=== PATIENT | female | born 1965 | race Caucasian/White ===

== ENCOUNTER 2017-12-21 17:35 | Emergency (ER) | payer BC, OTHER ==
[~2017-12-21] VITALS: Ht 160 cm; Wt 80.7 kg
[~2017-12-21 17:35] MED LIST: AMITRIPTYLINE H10 MG PO; AMLODIPINE BESY10 MG PO; ATORVASTATIN CA20 MG PO; BUTALB-ACETAMI1 EACH PO; CALTRATE 600+D1 EACH PO; CELEBREX200 MG PO; ESTRADIOL0.5 MG PO; LEVOTHYROXINE112 MCG PO; LISINOPRIL5 MG PO; MAGNESIUM; MELATONIN3 MG PO; PANTOPRAZOLE SO40 MG PO; PROGESTERONE100 MG PO; SYNTHROID75 MCG PO; VYTORIN 10-401 EACH PO; ZYRTEC10 M3 PO
[2017-12-21] MEDS ORDERED: SODIUM CHLORIDE 0.9% 500ML 500 ML IV STA ×2 (18:20→20:11)
[2017-12-21] MEDS ORDERED: ONDANSETRON HCL INJ 2 MG/ML VIAL IV STA ×2 (18:20→21:25)
[2017-12-21] MEDS ORDERED: ASPIRIN 81 MG CHEW TAB PO ONE ×2 (18:30→22:00)
[2017-12-21 19:27] LABS: CLARITY,URINE CLOUDY (CLEAR); COLOR,URINE AMBER (YELLOW)
[2017-12-21 19:28] LABS: BILIRUBIN,URINE 2+ (NEGATIVE); KETONES,URINE 1+ (NEGATIVE); LEUKOCYTE ESTERASE ,URINE TRACE (NEGATIVE); NITRITE,URINE POSITIVE (NEGATIVE); PROTEIN,URINE DIPSTICK 2+ (NEGATIVE); URINE UROBILINOGEN 1 mg/dL (0.2 - 1)
--- NOTE | 2017-12-21 19:34 | Diagnostic Imaging Report ---
EXAMINATION: CHEST SINGLE (PORTABLE) INDICATION: Dehydration. COMPARISON: None FINDINGS: AP view TUBES and LINES: None. LUNGS: Lungs are well inflated. Focal rounded airspace opacity in the right lung base. Left basilar atelectasis and/or consolidation. PLEURA: No pleural effusion or pneumothorax. HEART AND MEDIASTINUM: The cardiomediastinal silhouette is unremarkable. BONES AND SOFT TISSUES: No acute osseous lesion. Soft tissues are unremarkable. UPPER ABDOMEN: No free air under the diaphragm. IMPRESSION: 1. Right lung base pneumonia. 2. Left basilar atelectasis and/or pneumonia. Signed by: Dr. Vahid Bradley M.D. on 12/21/2017 7:30 PM
[2017-12-21 19:53] LABS: EPITHELIAL CELLS,URINE MANY /LPF; RBC,URINE >50 /HPF (0-5); WBC,URINE (MAN) >50 /HPF (0-5)
[2017-12-21 19:55] LABS: BACTERIA,URINE MANY /HPF; COARSE GRANULAR CASTS,URINE >15 (0)
[2017-12-21] MEDS ORDERED: AZITHROMYCIN 500MG/NS 250 ML 250 ML IV STA (20:11)
[2017-12-21] MEDS ORDERED: CEFTRIAXONE SOD 1 GM VIAL IM ONE (20:15)
[2017-12-21] MEDS ORDERED: CEFTRIAXONE SOD 1 GM VIAL IV SCH (22:00)
[2017-12-21] MEDS ORDERED: SODIUM CHLORIDE FLUSH 10 ML SYR INJ PRN (22:00)
[2017-12-21] MEDS ORDERED: AZITHROMYCIN 500MG/SOD CHL 0.9% 250ML BAG IV SCH (22:00)
[2017-12-21] MEDS ORDERED: AZITHROMYCIN 500MG/NS 250 ML 250 ML IV SCH (22:30)
[2017-12-22] MEDS ORDERED: HYDROCODONE/APAP 5MG-325MG TAB PO ONE (00:45)
[2017-12-22 00:58] LABS: BASOPHILS % 0.3 % (0.0-1.0); HEMATOCRIT 45.5 % (34.2-44.1); HEMOGLOBIN 15.1 g/dL (12.0-16.0); LYMPHOCYTES # (AUTO) 1.1 (1.0-3.2); LYMPHOCYTES % 14.8 % (18.0-39.1); MEAN CORPUSCULAR HEMOGLOBIN 29.4 pg (28-32); MEAN CORPUSCULAR HGB CONC 33.2 g/dL (31-35); MEAN CORPUSCULAR VOLUME 88.5 fL (81-99); MONOCYTES # (AUTO) 0.6 (0.2-0.8); MONOCYTES % 7.7 % (4.4-11.3); NEUTROPHILS # (AUTO) 5.5 (2.1-6.9); NEUTROPHILS % 76.5 % (38.7-80.0); PLATELET COUNT 142 x10e3/uL (140-360); RED BLOOD COUNT 5.14 x10e6/uL (3.6-5.1); RED CELL DISTRIBUTION WIDTH 14.5 % (11.7-14.4)
[2017-12-22 01:10] LABS: INR 1.17
[2017-12-22 01:11] LABS: PARTIAL THROMBOPLASTIN TIME 31.8 seconds (23.8-35.5)
[2017-12-22 01:20] LABS: ALANINE AMINOTRANSFERASE 83 IU/L (0-55); ALBUMIN 3.6 g/dL (3.5-5.0); ALBUMIN/GLOBULIN RATIO 0.9 (0.8-2.0); ALKALINE PHOSPHATASE 95 IU/L (40-150); BLOOD UREA NITROGEN 24 mg/dL (7-26); BUN/CREATININE RATIO 16 (6-25); CALCIUM 9.5 mg/dL (8.4-10.2); CARBON DIOXIDE 27 mmol/L (22-29); CHLORIDE 99 mmol/L (98-107); CREATINE KINASE 92 IU/L (29-168); CREATININE, SERUM 1.54 mg/dL (0.57-1.11); EST GLOMERULAR FILTRATION RATE 35 ML/MIN (60-); GLUCOSE 98 mg/dL (74-118); SODIUM 141 mmol/L (136-145)
[2017-12-22] MEDS ORDERED: SODIUM CHLORIDE 0.9% 500ML 500 ML ONE (02:23)
[2017-12-22] MEDS ORDERED: ACETAMINOPHEN 325 MG TAB PO ONE ×3 (03:30→09:15)
[2017-12-22] MEDS: IPRATROPIUM BROMIDE 0.02% 2.5 ML NEB NEB SCH ×2 (03:30→07:45)
[2017-12-22] MEDS: ALBUTEROL SULF 0.083% NEB SOLN 3 ML NEB NEB SCH ×2 (03:30→07:45)
[2017-12-22] MEDS ORDERED: ACETAMINOPHEN 325 MG TAB ONE (03:44)
[2017-12-22 05:57] LABS: BASOPHILS % 0.2 % (0.0-1.0); LYMPHOCYTES # (AUTO) 1.4 (1.0-3.2); LYMPHOCYTES % 16.8 % (18.0-39.1); MEAN CORPUSCULAR HEMOGLOBIN 29.5 pg (28-32); MEAN CORPUSCULAR HGB CONC 33.3 g/dL (31-35); MEAN CORPUSCULAR VOLUME 88.4 fL (81-99); MONOCYTES # (AUTO) 0.7 (0.2-0.8); MONOCYTES % 7.9 % (4.4-11.3); NEUTROPHILS # (AUTO) 6.3 (2.1-6.9); NEUTROPHILS % 74.4 % (38.7-80.0); PLATELET COUNT 124 x10e3/uL (140-360); RED BLOOD COUNT 4.41 x10e6/uL (3.6-5.1); RED CELL DISTRIBUTION WIDTH 14.4 % (11.7-14.4)
[2017-12-22 06:27] LABS: ALBUMIN/GLOBULIN RATIO 0.9 (0.8-2.0); ANION GAP 13.4 mmol/L (8-16); CALCIUM 8.6 mg/dL (8.4-10.2); CREATININE, SERUM 1.44 mg/dL (0.57-1.11); POTASSIUM 3.4 mmol/L (3.5-5.1)
[2017-12-22 07:37] LABS: BAND NEUTROPHILS % (MANUAL) 3 %; LYMPHOCYTES % (MANUAL) 9 % (19-48); METAMYELOCYTES % (MANUAL) 1 % (0-0); MONOCYTES % (MANUAL) 7 % (3.4-9.0); NEUTROPHILS % (MANUAL) 69 % (40-74)
[2017-12-22 07:38] LABS: PLATELET ESTIMATE SLIGHTLY DECREASED; PLATELET MORPHOLOGY COMMENT FEW LARGE; RBC MORPHOLOGY COMMENT NORMAL
[2017-12-22] MEDS ORDERED: SODIUM CHLORIDE 0.9% 1000ML 1,000 ML IV STA (08:09)
[2017-12-22] MEDS ORDERED: SODIUM CHLORIDE 0.9% 1000ML 1,000 ML ONE (08:11)
== END 2017-12-22 09:21 | disposition home or self-care (01) ==
LOC: ER 17:35 → UNDOADMIN 12-22 07:14 → ERHOLD 12-22 07:14 → UNDOADMIN 12-22 07:31 → ERHOLD 12-22 07:31 → EDBEDREQTM 12-22 07:33 → ER 12-22 09:21
DX: R11.0 Nausea (principal); R51 Headache; J18.9 Pneumonia, unspecified organism; N39.0 Urinary tract infection, site not specified
CPT/HCPCS: 36415; 71045; 80053; 81001; 82550; 82553; 83735; 84484; 85025; 85610; 85730; 87040; 87086; 94640; 99284; J0696; J2405; J7030; J7040

== ENCOUNTER 2017-12-25 11:40 | Emergency (ER) | payer BC ==
[~2017-12-25] VITALS: Ht 160 cm; Wt 81.6 kg
[2017-12-25] MEDS ORDERED: ALBUTEROL SULF 0.083% NEB SOLN 3 ML NEB NEB STA (11:48)
[2017-12-25] MEDS ORDERED: SODIUM CHLORIDE 0.9% 1000ML 1,000 ML IV STA (11:48)
[2017-12-25] MEDS ORDERED: IPRATROPIUM BROMIDE 0.02% 2.5 ML NEB NEB STA (11:48)
--- NOTE | 2017-12-25 12:12 | Diagnostic Imaging Report ---
EXAMINATION: CHEST SINGLE (PORTABLE) INDICATION: Shortness of breath. COMPARISON: None FINDINGS: AP view TUBES and LINES: None. LUNGS: Round opacity is present in the right lung base is less conspicuous on today's exam. Mild patchy density in the left lung base suggestive of atelectasis. PLEURA: No pleural effusion or pneumothorax. HEART AND MEDIASTINUM: The cardiomediastinal silhouette is unremarkable. BONES AND SOFT TISSUES: No acute osseous lesion. Soft tissues are unremarkable. UPPER ABDOMEN: No free air under the diaphragm. IMPRESSION: Round opacity is present in the right lung base is less conspicuous on today's exam possibly resolving pneumonia.. Mild patchy density in the left lung base suggestive of atelectasis. Recommend follow-up chest PA and lateral views after treatment in 6 weeks to document complete resolution. Signed by: Dr. Diana Morris M.D. on 12/25/2017 12:09 PM
[2017-12-25 12:37] LABS: BASOPHILS # (AUTO) 0.1 (0.0-0.1); BASOPHILS % 0.8 % (0.0-1.0); EOSINOPHILS # (AUTO) 0.2 (0.0-0.4); EOSINOPHILS % 2.5 % (0.0-6.0); HEMATOCRIT 39.8 % (34.2-44.1); HEMOGLOBIN 13.3 g/dL (12.0-16.0); LYMPHOCYTES # (AUTO) 2.9 (1.0-3.2); LYMPHOCYTES % 41.3 % (18.0-39.1); MEAN CORPUSCULAR HEMOGLOBIN 29.4 pg (28-32); MEAN CORPUSCULAR HGB CONC 33.4 g/dL (31-35); MEAN CORPUSCULAR VOLUME 88.1 fL (81-99); MONOCYTES # (AUTO) 0.5 (0.2-0.8); MONOCYTES % 6.9 % (4.4-11.3); NEUTROPHILS # (AUTO) 3.3 (2.1-6.9); NEUTROPHILS % 47.1 % (38.7-80.0); PLATELET COUNT 240 x10e3/uL (140-360); RED BLOOD COUNT 4.52 x10e6/uL (3.6-5.1); RED CELL DISTRIBUTION WIDTH 14.3 % (11.7-14.4)
[2017-12-25 12:56] LABS: ALANINE AMINOTRANSFERASE 77 IU/L (0-55); ALBUMIN 3.4 g/dL (3.5-5.0); ALBUMIN/GLOBULIN RATIO 0.9 (0.8-2.0); ALKALINE PHOSPHATASE 89 IU/L (40-150); ANION GAP 14.2 mmol/L (8-16); BLOOD UREA NITROGEN 17 mg/dL (7-26); BUN/CREATININE RATIO 12 (6-25); CALCIUM 9.7 mg/dL (8.4-10.2); CARBON DIOXIDE 30 mmol/L (22-29); CHLORIDE 99 mmol/L (98-107); CREATINE KINASE 37 IU/L (29-168); EST GLOMERULAR FILTRATION RATE 39 ML/MIN (60-); GLUCOSE 158 mg/dL (74-118); POTASSIUM 3.2 mmol/L (3.5-5.1); SODIUM 140 mmol/L (136-145)
[2017-12-25 14:04] VITALS: BP 133/78
[2017-12-25 14:24] LABS: BILIRUBIN,URINE NEGATIVE (NEGATIVE); CLARITY,URINE CLEAR (CLEAR); COLOR,URINE YELLOW (YELLOW); KETONES,URINE NEGATIVE (NEGATIVE); LEUKOCYTE ESTERASE ,URINE NEGATIVE (NEGATIVE); NITRITE,URINE NEGATIVE (NEGATIVE); PROTEIN,URINE DIPSTICK NEGATIVE (NEGATIVE); URINE UROBILINOGEN 0.2 mg/dL (0.2 - 1)
[2017-12-25 14:37] LABS: RBC,URINE 21-50 /HPF (0-5); WBC,URINE (MAN) 0-5 /HPF (0-5)
[2017-12-25 14:38] LABS: BACTERIA,URINE RARE /HPF; EPITHELIAL CELLS,URINE MANY /LPF
[2017-12-25 14:58] LABS: PLATELET ESTIMATE ADEQUATE; PLATELET MORPHOLOGY COMMENT NORMAL; RBC MORPHOLOGY COMMENT NORMAL
--- OUTSIDE RECORDS SUMMARY | 2018-04-05 14:22 | XMS REPORT | Continuity of Care Document ---
Author Author [facility] Organization [facility] Address [address] [place] [address] Phone Unavailable Care Team Providers Care Nurse Practitioner Physician Assistant Name Role Phone KYLIE TREVIZO DO PCP Insurance Providers Guarantor Tish Ch Address [address] [place] [address] Email [facility] [employer] Policy Number [id number] Subscriber's Name Tish Ch Relationship 18 Self / Same As Patient Advance Directives Directive Response Recorded Date/Time Does the patient have an advance directive? Yes 01/02/15 9:25pm If yes, is advance [facility]? No 09/10/08 8:23am If not on file with [facility] will patient provide a copy? Yes 11/16/16 10:58pm Do you have a Directive to Physician? No 12/21/17 10:08pm Do you have a Medical Power of Pourer [place]? No 12/21/17 10:08pm Do you have an out of hospital Do Not Resuscitate Order? No 12/21/17 10:08pm Do you have any special needs we should be aware of? No 12/21/17 10:08pm Do you have a support person here with you today? Yes 12/21/17 10:08pm Did patient receive Notice of Privacy Practices? Yes 12/21/17 10:08pm Did patient receive patient rights and responsibilities? Yes 12/21/17 10:08pm Problems Medical Problem Onset Date Status Back pain Unknown Acute Pneumonia Unknown Sprain of right hand Unknown Acute Urinary tract infection Unknown Medications Current Home Medications Medication Dose Units Route Directions Days Qty Instructions Start Date Amitriptyline Hcl 10 Mg Tablet 10 Mg Oral Daily Amlodipine Besylate 10 Mg Tablet 10 Mg Oral Daily 30 Tab Atorvastatin Calcium 20 Mg Tablet 20 Mg Oral Bedtime Butalb/Acetaminophen/Caffeine (Lecpwi-Jncyvfmx-Pqkl 50-325-40) 1 Each Tablet 1 Tab Oral Every 4-6 Hrs Prn Celecoxib (Celebrex) 200 Mg Capsule 200 Mg Oral Daily Estradiol 0.5 Mg Tablet 0.5 Mg Oral Daily Levothyroxine Sodium 112 Mcg Tablet 112 Mcg Oral Daily 30 Tab Magnesium Melatonin 3 Mg Tablet 3 Mg Oral Bedtime Pantoprazole Sodium (Protonix) 40 Mg Tablet.dr 40 Mg Oral Daily Progesterone,Micronized (Progesterone) 100 Mg Capsule 100 Mg Oral Daily Past Home Medications Medication Directions Ordered Status Calcium Carb/Vit D3/Minerals (Caltrate 600+D Plus Tab Chew) 1 Each Tab.chew, 1 Tab Oral Daily Discontinued Cetirizine Hcl (Zyrtec) 10 Mg Capsule, 10 Mg Oral Daily Discontinued Ezetimibe/Simvastatin (Vytorin 10-40 Mg Tablet) 1 Each Tablet, 1 Tab Oral Daily Discontinued Levothyroxine Sodium (Synthroid) 75 Mcg Tab, 75 Mcg Oral Daily Discontinued Lisinopril 5 Mg Tablet, 5 Mg Oral Daily Discontinued Social History Smoking Status Start Date Stop Date Never Smoker Hospital Discharge Instructions No hospital discharge instruction information available. Plan of Care Discharge Date 12/22/17 9:21am Disposition HOME, SELF-CARE Condition at Discharge Stable Instructions/Education Provided Pneumonia - Bacterial Urinary Tract Infection - Women Forms Provided Work/School Excuse Prescriptions See Medication Section Referrals KYLIE TREVIZO DO Address: [address] [place] [phone] Additional Instructions/Education FOLLOW UP WITH PCP TAKE MEDS DIRECTED Functional Status No functional status information available. Allergies, Adverse Reactions, Alerts Allergen Type Severity Reaction Status Last Updated promethazine HCl Allergy Unknown Active 12/21/17 Immunizations No immunization information available. Vital Signs Acute Vital Signs Vital Response Date/Time Pulse Pulse Rate (adult) 80 bpm (60 - 90) 12/22/2017 7:50am Pulse Pulse Rate (adult) 80 bpm (60 - 90) 12/22/2017 7:50am Respiratory Rate 18 bpm (12 - 24) 12/22/2017 7:50am Height 5 ft 3 in 12/21/2017 6:08pm Weight 178 lb 12/21/2017 6:08pm Body Mass Index 31.5 kg/m^2 12/21/2017 6:08pm Results Laboratory Results Test Name Result Units Flags Reference Collection Date/Time Result Date/ Time Comments White Blood Count 8.52 x10e3/uL 4.8-10.8 12/22/2017 5:00am 12/22/2017 6 :37am Red Blood Count 4.41 x10e6/uL 3.6-5.1 12/22/2017 5:00am 12/22/2017 6: 37am Hemoglobin 13.0 g/dL 12.0-16.0 12/22/2017 5:00am 12/22/2017 6:37am Hematocrit 39.0 % 34.2-44.1 12/22/2017 5:00am 12/22/2017 6:37am Mean Corpuscular Volume 88.4 fL 81-99 12/22/2017 5:00am 12/22/2017 6: 37am Mean Corpuscular Hemoglobin 29.5 pg 28-32 12/22/2017 5:00am 12/22/2017 6:37am Mean Corpuscular Hemoglobin Concent 33.3 g/dL 31-35 12/22/2017 5:00am 12/22/2017 6:37am Red Cell Distribution Width 14.4 % 11.7-14.4 12/22/2017 5:00am 2017 6:37am Platelet Count 124 x10e3/uL L 140-360 12/22/2017 5:00am 12/22/2017 6: 37am Neutrophils (%) (Auto) 74.4 % 38.7-80.0 12/22/2017 5:0012/22/2017 6: 37am Lymphocytes (%) (Auto) 16.8 % L 18.0-39.1 12/22/2017 5:0012/22/2017 6 :37am Monocytes (%) (Auto) 7.9 % 4.4-11.3 12/22/2017 5:0012/22/2017 6: 37am Eosinophils (%) (Auto) 0.0 % 0.0-6.0 12/22/2017 5:0012/22/2017 6: 37am Basophils (%) (Auto) 0.2 % 0.0-1.0 12/22/2017 5:0012/22/2017 6:37am IM GRANULOCYTES % 0.7 % 0.0-1.0 12/22/2017 5:0012/22/2017 6:37am Neutrophils # (Auto) 6.3 2.1-6.9 12/22/2017 5:0012/22/2017 6:37am Lymphocytes # (Auto) 1.4 1.0-3.2 12/22/2017 5:0012/22/2017 6:37am Monocytes # (Auto) 0.7 0.2-0.8 12/22/2017 5:0012/22/2017 6:37am Eosinophils # (Auto) 0.0 0.0-0.4 12/22/2017 5:0012/22/2017 6:37am Basophils # (Auto) 0.0 0.0-0.1 12/22/2017 5:0012/22/2017 6:37am Absolute Immature Granulocyte (auto 0.06 x10e3/uL 0-0.1 12/22/2017 5: 0012/22/2017 6:37am Differential Total Cells Counted 100 12/22/2017 5:0012/22/2017 7 :38am Neutrophils % (Manual) 69 % 40-74 12/22/2017 5:0012/22/2017 7:38am Band Neutrophils % 3 % 12/22/2017 5:0012/22/2017 7:38am Lymphocytes % (Manual) 9 % L 19-48 12/22/2017 5:00am 12/22/2017 7:38am Monocytes % (Manual) 7 % 3.4-9.0 12/22/2017 5:00am 12/22/2017 7:38am Metamyelocytes % 1 % H 0-0 12/22/2017 5:00am 12/22/2017 7:38am Reactive Lymphocytes 11 12/22/2017 5:00am 12/22/2017 7:38am Platelet Estimate SLIGHTLY DECREASED 12/22/2017 5:00am 12/22/2017 7 :38am Platelet Morphology Comment FEW LARGE 12/22/2017 5:00am 12/22/2017 7:38am Red Cell Morphology Comment NORMAL 12/22/2017 5:00am 12/22/2017 7: 38am Prothrombin Time 14.0 seconds 11.9-14.5 12/22/2017 12:40am 12/22/2017 1 :15am Prothromb Time International Ratio 1.17 12/22/2017 12:40am 2017 1:15am Oral Anticoagulant Therapy INR Values: 1. Low Intensity Therapy 1.5 - 2.0 2. Moderate Intensity Therapy 2.0 - 3.0 3. High Intensity Therapy(1) 2.5 - 3.5 4. High Intensity Therapy(2) 3.0 - 4.0 5. Panic Value INR > 5.0 Activated Partial Thromboplast Time 31.8 seconds 23.8-35.5 12/22/2017 12 :40am 12/22/2017 1:15am Urine Color RICHARD H YELLOW 12/21/2017 6:09pm 12/21/2017 7:28pm Urine Clarity CLOUDY H CLEAR 12/21/2017 6:09pm 12/21/2017 7:28pm Urine Specific [place] 1.025 1.010-1.025 12/21/2017 6:09pm 2017 7:28pm Urine pH 5 5 - 7 12/21/2017 6:09pm 12/21/2017 7:28pm Urine Leukocyte Esterase TRACE H NEGATIVE 12/21/2017 6:09pm 2017 7:28pm Urine Nitrite POSITIVE H NEGATIVE 12/21/2017 6:09pm 12/21/2017 7:28pm Urine Protein 2+ H NEGATIVE 12/21/2017 6:09pm 12/21/2017 7:28pm Urine Glucose (UA) NEGATIVE NEGATIVE 12/21/2017 6:09pm 12/21/2017 7: 28pm Urine Ketones 1+ H NEGATIVE 12/21/2017 6:09pm 12/21/2017 7:28pm Urine Urobilinogen 1 mg/dL 0.2 - 1 12/21/2017 6:09pm 12/21/2017 7:28pm Urine Bilirubin 2+ H NEGATIVE 12/21/2017 6:09pm 12/21/2017 7:28pm Urine Blood 4+ H NEGATIVE 12/21/2017 6:09pm 12/21/2017 7:28pm Urine WBC >50 /HPF H 0-5 12/21/2017 6:09pm 12/21/2017 7:58pm Urine RBC >50 /HPF H 0-5 12/21/2017 6:09pm 12/21/2017 7:58pm Urine Bacteria MANY /HPF H NONE 12/21/2017 6:09pm 12/21/2017 7:58pm Urine Epithelial Cells MANY /LPF NONE 12/21/2017 6:09pm 12/21/2017 7: 58pm Urine Coarse Granular Casts >15 H 0 12/21/2017 6:09pm 12/21/2017 7: 58pm Sodium Level 140 mmol/L 136-145 12/22/2017 5:00am 12/22/2017 6:27am Potassium Level 3.4 mmol/L L 3.5-5.1 12/22/2017 5:00am 12/22/2017 6: 27am Chloride Level 104 mmol/L 98-107 12/22/2017 5:00am 12/22/2017 6:27am Carbon Dioxide Level 26 mmol/L 22-29 12/22/2017 5:00am 12/22/2017 6: 27am Anion Gap 13.4 mmol/L 8-16 12/22/2017 5:00am 12/22/2017 6:27am Blood Urea Nitrogen 24 mg/dL 7-12/22/2017 5:00am 12/22/2017 6:27am Creatinine 1.44 mg/dL H 0.57-1.11 12/22/2017 5:00am 12/22/2017 6:27am BUN/Creatinine Ratio 17 6-12/22/2017 5:00am 12/22/2017 6:27am Estimat Glomerular Filtration Rate 38 ML/MIN L 60- 12/22/2017 5:00am 6:27am Ranges were taken from the National Kidney Disease Education Program and the National Kid[employer] literature. Reference ranges: 60 or greater: Normal 16-59 (for 3 consecutive months): Chronic kidney disease 15 or less: Kidney failure Glucose Level 88 mg/dL 74-118 12/22/2017 5:00am 12/22/2017 6:27am Calcium Level 8.6 mg/dL 8.4-10.2 12/22/2017 5:00am 12/22/2017 6:27am Magnesium Level 2.0 MG/DL 1.3-2.1 12/22/2017 12:40am 12/22/2017 1:21am Total Bilirubin 0.7 mg/dL 0.2-1.2 12/22/2017 5:00am 12/22/2017 6:27am Aspartate Amino Transf (AST/SGOT) 53 IU/L H 5-34 12/22/2017 5:00am 12/22 6:27am Alanine Aminotransferase (ALT/SGPT) 67 IU/L H 0-55 12/22/2017 5:00am 6:27am Total Protein 6.3 g/dL L 6.5-8.1 12/22/2017 5:00am 12/22/2017 6:27am Albumin 3.0 g/dL L 3.5-5.0 12/22/2017 5:00am 12/22/2017 6:27am Globulin 3.3 g/dL 2.3-3.5 12/22/2017 5:00am 12/22/2017 6:27am Albumin/Globulin Ratio 0.9 0.8-2.0 12/22/2017 5:00am 12/22/2017 6: 27am Alkaline Phosphatase 79 IU/L 40-150 12/22/2017 5:00am 12/22/2017 6: 27am Creatine Kinase 92 IU/L 29-168 12/22/2017 12:40am 12/22/2017 1:21am Creatine Kinase MB 1.20 ng/mL 0-5.0 12/22/2017 12:40am 12/22/2017 1: 43am Troponin I < 0.001 ng/mL 0-0.300 12/22/2017 12:40am 12/22/2017 1:43am Procedures No procedure information available. Encounters Encounter Location Arrival/Admit Date Discharge/Depart Date Attending Provider Departed Emergency Room [facility] 12/21/17 5:35pm 9:21am BRENDA RUFFIN MD
== END 2017-12-25 14:00 | disposition home or self-care (01) ==
LOC: ER 11:40
DX: R06.00 Dyspnea, unspecified (principal); R05 Cough; J15.9 Unspecified bacterial pneumonia; I10 Essential (primary) hypertension; E03.9 Hypothyroidism, unspecified
CPT/HCPCS: 36415; 71045; 80053; 81001; 82550; 82553; 84484; 85025; 87040; 93005; 94640; 99284; J7030

== ENCOUNTER → 2024-02-08 | Outpatient (REF) | payer BC, OTHER | LOC: MAMMO 14:09 | PROVIDERS: ATTEND Student in an Organized Health Care Education/Training Program | DX: Z12.31 Encounter for screening mammogram for malignant neoplasm of breast (principal) | CPT/HCPCS: 77067 ==